=== PATIENT | male | born 1965 | race Caucasian/White ===

== ENCOUNTER → 2016-10-16 | Outpatient (CLI) | payer BC | LOC: EMI 17:55 | DX: M66.222 Spontaneous rupture of extensor tendons, left upper arm (principal); S46.212A Strain of muscle, fascia and tendon of other parts of biceps, left arm, initial encounter; R60.0 Localized edema; M77.12 Lateral epicondylitis, left elbow | CPT/HCPCS: 73221 ==

== ENCOUNTER 2021-03-21 06:44 | Emergency (ER) | payer BC ==
[~2021-03-21] VITALS: Ht 175.3 cm; Wt 86.2 kg
== END 2021-03-21 10:36 | disposition home or self-care (01) ==
LOC: ER1 06:44
DX: Z23 Encounter for immunization (principal); U07.1 COVID-19
CPT/HCPCS: 99283; M0243